=== PATIENT | female | born 1945 | race Caucasian/White ===

== ENCOUNTER 2021-12-26 12:38 | Outpatient (CLI) | payer MEDICARE, SELFPAY ==
--- NOTE | 2021-12-26 13:00 | CRLHL7_ITS ---
For Patients: As a result of the Century Cures Act, medical imaging exams and procedure reports are released immediately into your electronic medical record. You may view this report before your referring provider. If you have questions, please contact your health care provider. Indication: ABNORMAL LUNG FINDINGS. [facility] Technique: Routine noncontrast CT chest performed. Please note that all CT scans at this facility use dose modulation, iterative reconstruction, and/or weight-based dosing when appropriate to reduce radiation dose to as low as reasonably achievable. Comparison: None Findings: Cavitary mass within the left upper lobe measuring approximately 4.0 x 2.6 x 6.6 cm. Thick soft tissues surrounds this mass and there are thickened soft tissue densities extending to the left hilum with associated traction bronchiectasis. Adjacent pleural thickening noted which extends to the left posterior apical pleura. Thickening of the adjacent interlobular septa noted within the left upper lobe. Left hilar and mediastinal adenopathy. Left upper lobe volume loss. Peripheral density within the right lateral lung base. COPD/emphysema. Vascular calcifications. Left thyroid lobe cystic nodule. No fracture. Impression: Large cavitary mass left upper lobe with abnormal densities extending to the left hilum and left upper lateral pleura. Associated left hilar and mediastinal adenopathy. Small area of peripheral density within the right lateral costophrenic angle, likely scarring. Please note that all CT scans at this facility use dose modulation, iterative reconstruction, and/or weight-based dosing when appropriate to reduce radiation dose to as low as reasonably achievable. Dictated by Brent Rivera MD @ 12/27/2021 12:11:03 PM (Electronically Signed)
== END 2021-12-26 12:39 | disposition home or self-care (01) ==
PROVIDERS: Visit Provider Internal Medicine
DX: R91.8 Other nonspecific abnormal finding of lung field (principal)
CPT/HCPCS: 71250

== ENCOUNTER 2022-01-31 10:48 | Outpatient (CLI) | payer MEDICARE, SELFPAY ==
--- NOTE | 2022-01-31 11:00 | CRLHL7_ITS ---
For Patients: As a result of the Century Cures Act, medical imaging exams and procedure reports are released immediately into your electronic medical record. You may view this report before your referring provider. If you have questions, please contact your health care provider. Indication: Follow up abnormal lung findings, [facility] protocol Technique: Noncontrast CT chest, [facility] protocol Please note that all CT scans at this facility use dose modulation, iterative reconstruction, and/or weight-based dosing when appropriate to reduce radiation dose to as low as reasonably achievable. Comparison: 12/26/2021 Findings: 3 millimeter nonobstructing stone upper pole left kidney. Dense vascular calcifications are present. Mild mediastinal adenopathy is similar. COPD/emphysema. Stable 5 millimeter nodule left lower lobe, 2/341. No significant interval change in the cavitary lesion within the posterior segment of the left upper lobe laterally. Similar surrounding tissue including linear densities extending to the pleura and hilum. Mild scarring within the medial right lower lobe. Mild scarring at both lung apices. No fracture is present. Impression: Stable cavitary lesion within the left upper lobe. Mild scarring at the right lower lobe medially. Interval clearing of density from the lateral right lower lobe. Stable 5 millimeter left lower lobe nodule. Stable mild adenopathy. Please note that all CT scans at this facility use dose modulation, iterative reconstruction, and/or weight-based dosing when appropriate to reduce radiation dose to as low as reasonably achievable. Dictated by Brent Rivera MD @ 01/31/2022 1:26:08 PM (Electronically Signed)
== END 2022-01-31 10:49 | disposition home or self-care (01) ==
PROVIDERS: Visit Provider Internal Medicine
DX: R91.8 Other nonspecific abnormal finding of lung field (principal)
CPT/HCPCS: 71250